=== PATIENT | male | born 1955 | race Caucasian/White ===

== ENCOUNTER 2022-07-17 09:27 | Outpatient (CLI) | payer BC, SELFPAY ==
[2022-07-17 15:37] LABS: Chloride* 102 mmol/L (96-114)
[2022-07-17 15:38] LABS: Potassium* 4.6 mmol/L (3.6-5.1); Sodium* 142 mmol/L (135-149)
[2022-07-17 15:40] LABS: Carbon Dioxide* 29 mmol/L (20-32); Cholesterol* 225 mg/dL (90-199); Creatinine* 1.1 mg/dL (0.5-1.5); Estimated Glomerular Filt Rate 74 ml/min
[2022-07-17 15:41] LABS: Blood Urea Nitrogen* 24 mg/dL (7-30); Calcium* 9.8 mg/dL (8.4-10.6); Glucose* 130 mg/dL (60-115); HDL Cholesterol* 32 mg/dL (>=40); LDL Cholesterol Calculated 135 mg/dL (<100); Triglycerides* 291 mg/dL (40-149)
[2022-07-17 16:20] LABS: Vitamin B12* 325 pg/mL (243-894)
== END 2022-07-17 09:28 | disposition home or self-care (01) ==
PROVIDERS: PCP Family Medicine; Visit Provider Family Medicine
DX: Z00.00 Encounter for general adult medical examination without abnormal findings (principal); E78.5 Hyperlipidemia, unspecified; I10 Essential (primary) hypertension; Z12.5 Encounter for screening for malignant neoplasm of prostate; Z13.21 Encounter for screening for nutritional disorder; Z13.29 Encounter for screening for other suspected endocrine disorder
CPT/HCPCS: 80048; 80061; 82607; 84153; 84443

== ENCOUNTER 2024-01-21 10:23 | Outpatient (CLI) | payer OTHER, SELFPAY | END 2024-01-21 10:24 | disposition home or self-care (01) | PROVIDERS: PCP Family Medicine; Visit Provider Family Medicine | DX: E78.5 Hyperlipidemia, unspecified (principal); I10 Essential (primary) hypertension; N40.0 Benign prostatic hyperplasia without lower urinary tract symptoms; Z12.5 Encounter for screening for malignant neoplasm of prostate | CPT/HCPCS: 80048; 80061; G0103 ==